=== PATIENT | male | born 1955 | race Caucasian/White ===

== ENCOUNTER 2017-10-25 09:04 | Emergency (ER) | payer OTHER ==
[2017-10-25] MEDS: KETOROLAC 30 MG INJ IM (09:52)
== END 2017-10-25 11:08 | disposition home or self-care (01) ==
LOC: FTE 09:04
DX: S22.32XA Fracture of one rib, left side, initial encounter for closed fracture (principal); I10 Essential (primary) hypertension; E11.9 Type 2 diabetes mellitus without complications; J44.9 Chronic obstructive pulmonary disease, unspecified; I50.9 Heart failure, unspecified; W06.XXXA Fall from bed, initial encounter; Y92.9 Unspecified place or not applicable; Z96.651 Presence of right artificial knee joint; Z98.61 Coronary angioplasty status; Z79.82 Long term (current) use of aspirin; Z79.4 Long term (current) use of insulin
CPT/HCPCS: 71045; 71100; 93005; 96372; 99284-25

== ENCOUNTER → 2017-10-25 | Outpatient (CLI) | payer OTHER ==
[2017-10-25 09:03] LABS: AADO2 Arterial 29.2 mmHg (7.0-24.0); Allen Test ACCEPTAB; Arterial Base Excess 1.6 mmol/L (-3.0-3); Arterial Blood Gas Oxygen Sat 95.1 mmHG (95.0-98.0); Arterial COHb 0.7 % (0.0-3.0); Arterial Fraction of Oxyhgb 94.2 % (93.0-99.0); Arterial HCO3 25.5 mmol/L (22.0-26.0); Arterial MetHb 0.2 % (0.0-1.5); Arterial Total Hemglobin 15.5 g/dl (12.0-18.0); Arterial pCO2 37.9 mmhg (35-45); MODE ROOM AIR; Site Right Radial
== END | disposition home or self-care (01) ==
LOC: PUL 08:49
DX: J44.9 Chronic obstructive pulmonary disease, unspecified (principal)
CPT/HCPCS: 36600; 82803

== ENCOUNTER 2018-10-30 06:29 | Inpatient (IN) | payer OTHER ==
[2018-10-30] MEDS: ASPIRIN 325 MG TAB PO (07:20)
[2018-10-30] MEDS: ALBUTEROL 0.5% (NEB) 2.5 MG/0.5 ML AMP INH (07:27)
[2018-10-30] MEDS: IPRATROPIUM (NEB) 0.5 MG/2.5 ML AMP INH (07:27)
[2018-10-30 07:33] LABS: ADD MAN DIFF? NO
[2018-10-30 07:35] LABS: BASOPHILS % 0.6 % (0.0-2.0); EOSINOPHILS # 0.6 10^3/ul (0.0-0.5); EOSINOPHILS % 11.9 % (0.0-7.0); HEMATOCRIT 42.1 % (42.0-52.0); HEMOGLOBIN 13.8 g/dl (14.0-18.0); LYMPHOCYTES # 0.8 10^3/ul (0.8-2.9); LYMPHOCYTES % 16.8 % (15.0-51.0); MEAN CORPUSCULAR HEMOGLOBIN 27.1 pg (29.0-33.0); MEAN CORPUSCULAR HGB CONC 32.8 g/dl (32.0-37.0); MEAN CORPUSCULAR VOLUME 82.5 fl (82.0-101.0); MEAN PLATELET VOLUME 9.4 fl (7.4-10.4); MONOCYTE # 0.3 10^3/ul (0.3-0.9); NEUTROPHIL # 3.1 10^3/ul (1.6-7.5); NEUTROPHILS % 63.5 % (39.0-77.0); PLATELET COUNT 125 10^3/UL (140-415); RED CELL DISTRIBUTION WIDTH 14.3 % (11.5-14.5)
[2018-10-30 07:35] LABS: WHITE BLOOD COUNT 4.9 10^3/ul (4.8-10.8)
[2018-10-30 07:58] LABS: ALANINE AMINOTRANSFERASE 26 IU/L (13-69); ALBUMIN 3.5 g/dl (3.3-4.9); ALKALINE PHOSPHATASE 86 IU/L (42-121); ANION GAP 6 (5-13); ASPARTATE AMINO TRANSFERASE 44 IU/L (15-46); BILIRUBIN,INDIRECT 0.7 mg/dl (0-1.1); BILIRUBIN,TOTAL 0.7 mg/dl (0.2-1.3); BLOOD UREA NITROGEN 16 mg/dl (7-20); CALCIUM 8.8 mg/dl (8.4-10.2); CARBON DIOXIDE 28 mmol/L (21-31); CHLORIDE 100 mmol/L (97-110); CREATININE 0.75 mg/dl (0.61-1.24); Estimated GFR > 60 mL/min (>60); GLUCOSE 388 mg/dl (70-220); SODIUM 134 mmol/L (135-144)
[2018-10-30] MEDS ORDERED: ACETAMINOPHEN 325 MG TAB PO ×2 (08:00→14:30)
[2018-10-30] MEDS ORDERED: ONDANSETRON 4 MG INJ IV ×2 (08:00→14:30)
[2018-10-30 08:01] LABS: CREATINE KINASE 79 IU/L (23-200)
[2018-10-30 08:08] LABS: POTASSIUM 5.4 mmol/L (3.5-5.1)
[2018-10-30 08:09] LABS: B-TYPE NATRIURETIC PEPTIDE 266 PG/ML (0-125); CK INDEX 2.6; CK-MB 2.03 ng/ml (0.0-2.4); TROPONIN-I 0.023 ng/ml (0.000-0.120)
[2018-10-30] MEDS: FUROSEMIDE 40 MG INJ IV ×2 (08:13→18:00)
[2018-10-30 08:17] LABS: PARTIAL THROMBOPLASTIN TIME 25.8 Sec (23.0-35.0); PROTIME 12.3 Sec (11.9-14.9)
[2018-10-30 09:45] LABS: ADD UMIC YES; UR ASCORBIC ACID NEGATIVE (NEGATIVE); UR BILIRUBIN (Dip) NEGATIVE (NEGATIVE); UR BLOOD (Dip) 1+ mg/dL (NEGATIVE); UR CLARITY CLEAR (CLEAR); UR COLOR STRAW (YELLOW); UR GLUCOSE (Dip) 3+ mg/dL (NEGATIVE); UR KETONES (Dip) NEGATIVE (NEGATIVE); UR LEUKOCYTE ESTERASE (Dip) NEGATIVE Leu/ul (NEGATIVE); UR NITRITE (Dip) NEGATIVE (NEGATIVE); UR RBC 1 /HPF (0-5); UR TOTAL PROTEIN (Dip) 2+ mg/dl (NEGATIVE); UR UROBILINOGEN (Dip) NEGATIVE (NEGATIVE); UR WBC 0 /HPF (0-5)
[2018-10-30 11:59] LABS: AADO2 Arterial 134.8 mmHg (7.0-24.0); Allen Test ACCEPTAB; Arterial Base Excess 1.5 mmol/L (-3.0-3); Arterial COHb 1.1 % (0.0-3.0); Arterial Fraction of Oxyhgb 97.6 % (93.0-99.0); Arterial HCO3 28.6 mmol/L (22.0-26.0); Arterial MetHb 0.3 % (0.0-1.5); Arterial pCO2 55.3 mmhg (35-45); MODE TX MASK 8; Site Right Radial
[2018-10-30 12:21] LABS: CREATINE KINASE 64 IU/L (23-200)
[2018-10-30 12:35] LABS: CK INDEX 3.1; CK-MB 1.99 ng/ml (0.0-2.4); TROPONIN-I 0.022 ng/ml (0.000-0.120)
[2018-10-30] MEDS ORDERED: GLUCOSE GEL 15 GRAM TUBE PO ×2 (14:30)
[2018-10-30] MEDS: DOCUSATE SODIUM 100 MG CAP PO ×2 (14:30→21:15)
[2018-10-30] MEDS ORDERED: GLUCAGON 1 MG INJ IM (14:30)
[2018-10-30] MEDS ORDERED: DEXTROSE 50% 50 ML SYRINGE IV ×2 (14:30)
[2018-10-30] MEDS ORDERED: ZOLPIDEM 5 MG TAB PO (14:30)
[2018-10-30] MEDS ORDERED: LORAZEPAM 0.5 MG TAB PO (14:30)
[2018-10-30] MEDS ORDERED: GLUCOSE GEL 15 GRAM TUBE BUCCAL (14:30)
[2018-10-30] MEDS: INSULIN ASPART [NOVOLOG] 3 ML PEN SC ×4 (14:43→21:21)
[2018-10-30 15:19] LABS: ANION GAP 8 (5-13); BLOOD UREA NITROGEN 16 mg/dl (7-20); CALCIUM 9.2 mg/dl (8.4-10.2); CARBON DIOXIDE 31 mmol/L (21-31); CHLORIDE 95 mmol/L (97-110); CREATININE 0.83 mg/dl (0.61-1.24); Estimated GFR > 60 mL/min (>60); GLUCOSE 366 mg/dl (70-220); POTASSIUM 4.5 mmol/L (3.5-5.1); SODIUM 134 mmol/L (135-144)
[2018-10-30] MEDS: PREGABALIN 100 MG CAP PO ×2 (16:10→21:36)
[2018-10-30] MEDS: ACCU-CHEK XX ×2 (17:25→21:00)
[2018-10-30 18:37] LABS: CREATINE KINASE 64 IU/L (23-200)
[2018-10-30 18:51] LABS: CK INDEX 3.3; CK-MB 2.09 ng/ml (0.0-2.4); TROPONIN-I 0.022 ng/ml (0.000-0.120)
[2018-10-30] MEDS ORDERED: INSULIN GLARGINE [LANtus] 3 ML PEN SC (21:00)
[2018-10-30] MEDS: DAPSONE 25 MG TABLET PO (21:15)
[2018-10-30] MEDS: EZETIMIBE 10 MG TAB PO (21:16)
[2018-10-30] MEDS: ATORVASTATIN 40 MG TAB PO (21:16)
[2018-10-30] MEDS: FISH OIL 1,000 MG CAP PO (21:17)
[2018-10-30] MEDS: FAMOTIDINE 20 MG TAB PO (21:17)
[2018-10-30] MEDS: INSULIN GLARGINE [LANTus] (100 UNITS/ML) SYG SC (21:21)
[2018-10-31] MEDS: ACCU-CHEK XX ×5 (02:00→21:00)
[2018-10-31] MEDS: HYDROCODONE/APAP (5/325) TAB PO ×3 (03:40→20:45)
[2018-10-31] MEDS: PANTOPRAZOLE (EC) 40 MG TAB PO (06:19)
[2018-10-31] MEDS: FUROSEMIDE 40 MG INJ IV (06:20)
[2018-10-31 06:27] LABS: ADD MAN DIFF? NO
[2018-10-31 06:30] LABS: WHITE BLOOD COUNT 6.6 10^3/ul (4.8-10.8)
[2018-10-31 06:30] LABS: BASOPHIL # 0.1 10^3/ul (0.0-0.1); BASOPHILS % 0.8 % (0.0-2.0); EOSINOPHILS # 0.9 10^3/ul (0.0-0.5); HEMATOCRIT 41.6 % (42.0-52.0); HEMOGLOBIN 13.8 g/dl (14.0-18.0); LYMPHOCYTES # 1.3 10^3/ul (0.8-2.9); LYMPHOCYTES % 19.5 % (15.0-51.0); MEAN CORPUSCULAR HGB CONC 33.2 g/dl (32.0-37.0); MEAN CORPUSCULAR VOLUME 81.4 fl (82.0-101.0); MEAN PLATELET VOLUME 9.5 fl (7.4-10.4); MONOCYTE # 0.6 10^3/ul (0.3-0.9); MONOCYTES % 9.1 % (0.0-11.0); NEUTROPHIL # 3.7 10^3/ul (1.6-7.5); NEUTROPHILS % 56.3 % (39.0-77.0); PLATELET COUNT 163 10^3/UL (140-415); RED BLOOD COUNT 5.11 10^6/ul (4.70-6.10); RED CELL DISTRIBUTION WIDTH 14.1 % (11.5-14.5)
[2018-10-31 07:01] LABS: IRON 89 ug/dl (35-150)
[2018-10-31 07:03] LABS: CHOLESTEROL 137 mg/dl (100-200)
[2018-10-31 07:03] LABS: ANION GAP 4 (5-13); BLOOD UREA NITROGEN 23 mg/dl (7-20); CALCIUM 8.7 mg/dl (8.4-10.2); CARBON DIOXIDE 33 mmol/L (21-31); CHLORIDE 94 mmol/L (97-110); CHOL/HDL RATIO 3.8 RATIO; CREATININE 1.08 mg/dl (0.61-1.24); Estimated GFR > 60 mL/min (>60); GLUCOSE 315 mg/dl (70-220); HDL CHOLESTEROL 36 mg/dl (30-78); LDL CHOLESTEROL,CALCULATED 69 mg/dl; MAGNESIUM 1.7 mg/dl (1.7-2.5); PHOSPHORUS 4.9 mg/dl (2.5-4.9); POTASSIUM 4.2 mmol/L (3.5-5.1); SODIUM 131 mmol/L (135-144); TRIGLYCERIDES 162 mg/dl (0-149)
[2018-10-31 07:10] LABS: % IRON SATURATION 28 % SAT (22-52); TOTAL IRON BINDING CAPACITY 314 ug/dl (241-421)
[2018-10-31] MEDS: FLUTICASONE/VILANTEROL 200-25 INH DEVICE INH (08:07)
[2018-10-31] MEDS: FISH OIL 1,000 MG CAP PO ×2 (08:07→20:42)
[2018-10-31] MEDS: DOCUSATE SODIUM 100 MG CAP PO ×2 (08:07→20:41)
[2018-10-31] MEDS: ASPIRIN 81 MG TAB PO (08:08)
[2018-10-31] MEDS: PREGABALIN 100 MG CAP PO ×3 (08:08→20:42)
[2018-10-31] MEDS: FAMOTIDINE 20 MG TAB PO ×2 (08:08→20:43)
[2018-10-31] MEDS: AMLODIPINE 5 MG TAB PO (08:09)
[2018-10-31] MEDS: DAPSONE 25 MG TABLET PO ×2 (08:09→20:43)
[2018-10-31] MEDS: LOSARTAN 50 MG TAB PO (08:10)
[2018-10-31] MEDS: BENAZEPRIL 10 MG TAB PO (08:10)
[2018-10-31] MEDS: INSULIN ASPART [NOVOLOG] 3 ML PEN SC ×8 (08:19→21:50)
[2018-10-31] MEDS: ENOXAPARIN 40 MG/0.4 ML SYG SC (08:24)
[2018-10-31] MEDS: EZETIMIBE 10 MG TAB PO (20:41)
[2018-10-31] MEDS: ATORVASTATIN 40 MG TAB PO (20:41)
[2018-10-31] MEDS: INSULIN GLARGINE [LANTus] (100 UNITS/ML) SYG SC (21:09)
[2018-11-01] MEDS: ACCU-CHEK XX ×5 (02:00→21:00)
[2018-11-01] MEDS: PANTOPRAZOLE (EC) 40 MG TAB PO (06:45)
[2018-11-01 07:48] LABS: ADD MAN DIFF? NO
[2018-11-01 07:52] LABS: WHITE BLOOD COUNT 5.1 10^3/ul (4.8-10.8)
[2018-11-01 07:52] LABS: BASOPHILS % 0.6 % (0.0-2.0); EOSINOPHILS # 0.8 10^3/ul (0.0-0.5); EOSINOPHILS % 15.6 % (0.0-7.0); HEMATOCRIT 41.6 % (42.0-52.0); HEMOGLOBIN 13.6 g/dl (14.0-18.0); LYMPHOCYTES # 0.9 10^3/ul (0.8-2.9); LYMPHOCYTES % 17.1 % (15.0-51.0); MEAN CORPUSCULAR HEMOGLOBIN 26.7 pg (29.0-33.0); MEAN CORPUSCULAR HGB CONC 32.7 g/dl (32.0-37.0); MEAN CORPUSCULAR VOLUME 81.6 fl (82.0-101.0); MEAN PLATELET VOLUME 9.4 fl (7.4-10.4); MONOCYTE # 0.4 10^3/ul (0.3-0.9); MONOCYTES % 7.9 % (0.0-11.0); NEUTROPHILS % 58.4 % (39.0-77.0); PLATELET COUNT 156 10^3/UL (140-415); RED CELL DISTRIBUTION WIDTH 14.1 % (11.5-14.5)
[2018-11-01] MEDS: INSULIN ASPART [NOVOLOG] 3 ML PEN SC ×7 (08:05→21:43)
[2018-11-01 08:26] LABS: ANION GAP 8 (5-13); BLOOD UREA NITROGEN 38 mg/dl (7-20); CALCIUM 8.6 mg/dl (8.4-10.2); CARBON DIOXIDE 30 mmol/L (21-31); CHLORIDE 91 mmol/L (97-110); CREATININE 1.52 mg/dl (0.61-1.24); Estimated GFR 46 mL/min (>60); GLUCOSE 332 mg/dl (70-220); POTASSIUM 4.5 mmol/L (3.5-5.1); SODIUM 129 mmol/L (135-144)
[2018-11-01] MEDS: FLUTICASONE/VILANTEROL 200-25 INH DEVICE INH ×2 (09:00→13:18)
[2018-11-01] MEDS: FISH OIL 1,000 MG CAP PO ×3 (09:00→21:00)
[2018-11-01] MEDS: AMLODIPINE 5 MG TAB PO (09:06)
[2018-11-01] MEDS: DOCUSATE SODIUM 100 MG CAP PO ×2 (09:06→21:00)
[2018-11-01] MEDS: ASPIRIN 81 MG TAB PO (09:06)
[2018-11-01] MEDS: DAPSONE 25 MG TABLET PO ×2 (09:07→21:00)
[2018-11-01] MEDS: FAMOTIDINE 20 MG TAB PO ×2 (09:07→21:00)
[2018-11-01] MEDS: BENAZEPRIL 10 MG TAB PO (09:07)
[2018-11-01] MEDS: LOSARTAN 50 MG TAB PO (09:07)
[2018-11-01] MEDS: FUROSEMIDE 40 MG INJ IV (09:08)
[2018-11-01] MEDS: PREGABALIN 100 MG CAP PO ×3 (09:16→21:00)
[2018-11-01] MEDS: ENOXAPARIN 40 MG/0.4 ML SYG SC (09:24)
[2018-11-01] MEDS: metFORMIN 500 MG TAB PO (17:44)
[2018-11-01] MEDS: EZETIMIBE 10 MG TAB PO (21:00)
[2018-11-01] MEDS: ATORVASTATIN 40 MG TAB PO (21:00)
[2018-11-01] MEDS: HYDROCODONE/APAP (5/325) TAB PO (21:01)
[2018-11-01] MEDS: IOHEXOL 14.3 MG(I)/ML (ADULT) BTL PO (21:39)
[2018-11-01] MEDS: INSULIN GLARGINE [LANTus] (100 UNITS/ML) SYG SC (21:44)
[2018-11-02] MEDS: ACCU-CHEK XX ×5 (02:00→21:00)
[2018-11-02] MEDS: PANTOPRAZOLE (EC) 40 MG TAB PO (05:47)
[2018-11-02 06:48] LABS: ADD MAN DIFF? NO
[2018-11-02 06:53] LABS: WHITE BLOOD COUNT 6.4 10^3/ul (4.8-10.8)
[2018-11-02 06:53] LABS: BASOPHILS % 0.5 % (0.0-2.0); EOSINOPHILS # 0.9 10^3/ul (0.0-0.5); EOSINOPHILS % 14.6 % (0.0-7.0); HEMATOCRIT 39.9 % (42.0-52.0); LYMPHOCYTES # 1.2 10^3/ul (0.8-2.9); LYMPHOCYTES % 19.2 % (15.0-51.0); MEAN CORPUSCULAR HGB CONC 32.6 g/dl (32.0-37.0); MEAN CORPUSCULAR VOLUME 82.8 fl (82.0-101.0); MEAN PLATELET VOLUME 9.6 fl (7.4-10.4); MONOCYTE # 0.6 10^3/ul (0.3-0.9); MONOCYTES % 9.3 % (0.0-11.0); NEUTROPHIL # 3.6 10^3/ul (1.6-7.5); NEUTROPHILS % 56.1 % (39.0-77.0); PLATELET COUNT 141 10^3/UL (140-415); RED BLOOD COUNT 4.82 10^6/ul (4.70-6.10); RED CELL DISTRIBUTION WIDTH 14.2 % (11.5-14.5)
[2018-11-02 07:12] LABS: ANION GAP 6 (5-13); BLOOD UREA NITROGEN 43 mg/dl (7-20); CALCIUM 8.4 mg/dl (8.4-10.2); CARBON DIOXIDE 30 mmol/L (21-31); CHLORIDE 94 mmol/L (97-110); Estimated GFR > 60 mL/min (>60); GLUCOSE 366 mg/dl (70-220); POTASSIUM 4.6 mmol/L (3.5-5.1); SODIUM 130 mmol/L (135-144)
[2018-11-02 07:18] LABS: MAGNESIUM 1.8 mg/dl (1.7-2.5)
[2018-11-02] MEDS: DAPSONE 25 MG TABLET PO ×2 (08:40→21:22)
[2018-11-02] MEDS: FISH OIL 1,000 MG CAP PO ×2 (08:40→21:22)
[2018-11-02] MEDS: LOSARTAN 50 MG TAB PO (08:40)
[2018-11-02] MEDS: ASPIRIN 81 MG TAB PO (08:41)
[2018-11-02] MEDS: FLUTICASONE/VILANTEROL 200-25 INH DEVICE INH (08:41)
[2018-11-02] MEDS: METOPROLOL (XL) 50 MG TAB PO (08:41)
[2018-11-02] MEDS: FAMOTIDINE 20 MG TAB PO ×2 (08:41→21:22)
[2018-11-02] MEDS: DOCUSATE SODIUM 100 MG CAP PO ×2 (08:44→21:55)
[2018-11-02] MEDS: PREGABALIN 100 MG CAP PO ×3 (08:45→21:28)
[2018-11-02] MEDS: ENOXAPARIN 40 MG/0.4 ML SYG SC (08:50)
[2018-11-02] MEDS: INSULIN ASPART [NOVOLOG] 3 ML PEN SC ×9 (08:54→21:26)
[2018-11-02] MEDS: HYDROCODONE/APAP (5/325) TAB PO ×2 (10:26→21:28)
[2018-11-02] MEDS: LINAGLIPTIN 5 MG TABLET PO (12:51)
[2018-11-02] MEDS: INSULIN GLARGINE [LANTus] (100 UNITS/ML) SYG SC ×2 (14:33→21:00)
[2018-11-02] MEDS: metFORMIN 500 MG TAB PO (17:48)
[2018-11-02] MEDS ORDERED: INSULIN GLARGINE [LANTus] (100 UNITS/ML) SYG SC (21:00)
[2018-11-02] MEDS: EZETIMIBE 10 MG TAB PO (21:22)
[2018-11-02] MEDS: ATORVASTATIN 40 MG TAB PO (21:22)
[2018-11-03] MEDS: ACCU-CHEK XX ×3 (02:00→11:30)
[2018-11-03] MEDS: PANTOPRAZOLE (EC) 40 MG TAB PO (06:13)
[2018-11-03] MEDS: INSULIN ASPART [NOVOLOG] 3 ML PEN SC ×4 (08:26→12:18)
[2018-11-03] MEDS: FAMOTIDINE 20 MG TAB PO (08:32)
[2018-11-03] MEDS: LINAGLIPTIN 5 MG TABLET PO (08:32)
[2018-11-03] MEDS: ASPIRIN 81 MG TAB PO (08:32)
[2018-11-03] MEDS: DOCUSATE SODIUM 100 MG CAP PO (08:32)
[2018-11-03] MEDS: LOSARTAN 50 MG TAB PO (08:33)
[2018-11-03] MEDS: FISH OIL 1,000 MG CAP PO (08:33)
[2018-11-03] MEDS: METOPROLOL (XL) 50 MG TAB PO (08:34)
[2018-11-03] MEDS: DAPSONE 25 MG TABLET PO (08:34)
[2018-11-03] MEDS: FLUTICASONE/VILANTEROL 200-25 INH DEVICE INH (08:34)
[2018-11-03] MEDS: INSULIN GLARGINE [LANTus] (100 UNITS/ML) SYG SC (08:37)
[2018-11-03] MEDS: ENOXAPARIN 40 MG/0.4 ML SYG SC (08:37)
[2018-11-03] MEDS: PREGABALIN 100 MG CAP PO ×3 (09:00→12:20)
== END 2018-11-03 14:45 | disposition home health service (06) | DRG 292 ==
LOC: 2NE 11-02 21:40 → E/R 06:29 → TEL 07:59
DX: I11.0 Hypertensive heart disease with heart failure (principal); J44.1 Chronic obstructive pulmonary disease with (acute) exacerbation; N17.9 Acute kidney failure, unspecified; I50.23 Acute on chronic systolic (congestive) heart failure; I48.91 Unspecified atrial fibrillation; E87.5 Hyperkalemia; I25.10 Atherosclerotic heart disease of native coronary artery without angina pectoris; E66.9 Obesity, unspecified; Z68.38 Body mass index [BMI] 38.0-38.9, adult; E78.5 Hyperlipidemia, unspecified; M19.90 Unspecified osteoarthritis, unspecified site; G47.33 Obstructive sleep apnea (adult) (pediatric); Z95.5 Presence of coronary angioplasty implant and graft; R07.9 Chest pain, unspecified; I25.2 Old myocardial infarction; Z87.891 Personal history of nicotine dependence; R00.2 Palpitations; E11.65 Type 2 diabetes mellitus with hyperglycemia; K74.60 Unspecified cirrhosis of liver; I42.9 Cardiomyopathy, unspecified
CPT/HCPCS: 36415; 36600; 70450; 71045; 74176; 76775; 80048; 80053; 80061; 81001; 82550; 82553; 82803; 82962; 83036; 83540; 83735; 83880; 84100; 84484; 85025; 85610; 85730; 93005; 93306; 93880; 94644; 99291-25